=== PATIENT | female | born 1995 | race Asian ===

== ENCOUNTER 2021-11-23 03:26 | Outpatient (CLI) ==
[~2021-11-23] VITALS: Ht 165.1 cm; Wt 68.4 kg
[2021-11-23] MEDS ORDERED: HOME MED LIST COMPLETE! XX SCH (03:45)
[2021-11-23 03:50] VITALS: BP 129/65
== END 2021-11-23 05:52 | disposition home or self-care (01) ==
LOC: M LDO 03:26
PROVIDERS: ATTEND Obstetrics & Gynecology
DX: O60.03 Preterm labor without delivery, third trimester (principal); Z86.16 Personal history of COVID-19; Z3A.38 38 weeks gestation of pregnancy
CPT/HCPCS: 59025; G0463

== ENCOUNTER 2021-12-01 08:23 | Inpatient (IN) | payer OTHER ==
[~2021-12-01] VITALS: Ht 165.1 cm; Wt 68.5 kg
[2021-12-01] VITALS (32 sets, daily range): BP systolic 82–189; BP diastolic 45–93
[2021-12-01] MEDS ORDERED: HOME MED LIST COMPLETE! XX SCH (08:50)
[2021-12-01] MEDS ORDERED: OXYTOCIN DRIP 30 UNITS in IV 1 EA IV PRN ×4 (09:50)
[2021-12-01] MEDS ORDERED: OXYTOCIN DRIP 30 UNITS in IV 1 EA IV SCH ×5 (09:50→21:15)
[2021-12-01] MEDS ORDERED: LACTATED RINGER'S 1000 ML IV STA (09:50)
[2021-12-01] MEDS ORDERED: CARBOPROST TROMETHAMINE 250 MCG/ML AMP IM PRN (09:50)
[2021-12-01] MEDS ORDERED: PENICILLIN G POTASSIUM IV 5 MU in D5W MINI-BAG PLUS 100 ML IV STA (09:50)
[2021-12-01] MEDS ORDERED: METHYLERGONOVINE MALEATE 0.2 MG/ML VIAL (J2210) IM PRN ×2 (09:50→21:15)
[2021-12-01] MEDS ORDERED: TRANEXAMIC ACID INJection 1,000 MG in NS 100 ML IV PRN (09:50)
[2021-12-01] MEDS ORDERED: LIDOCAINE 1% MDV 20ML VIAL INFIL PRN (09:50)
[2021-12-01 10:23] LABS: HEMATOCRIT 35.6 % (36.0-47.0); HEMOGLOBIN 11.5 g/dl (12.0-15.5); MEAN CORPUSCULAR HEMOGLOBIN 28.3 pg (27.0-33.0); MEAN CORPUSCULAR HGB CONC 32.3 g/dl (32.0-36.5); MEAN CORPUSCULAR VOLUME 87.5 fl (80.0-96.0); PLATELET COUNT, AUTOMATED 258 10^3/uL (150-450); RED BLOOD COUNT 4.07 10^6/uL (4.00-5.40); WHITE BLOOD COUNT 6.1 10^3/uL (4.0-10.0)
[2021-12-01] MEDS: PENICILLIN G POTASSIUM IV 2.5 MU in IV 1 EA IV SCH ×2 (13:44→18:01)
[2021-12-01] MEDS ORDERED: FENTANYL 2MCG/ML ROPIVACAINE 0.2% IN 0.9% NACL 100ML IVBAG As Ordered ONE (14:23)
[2021-12-01] MEDS ORDERED: NALOXONE INJ 0.4MG/1ML VIAL (J2310 PER 1MG) IV PRN (14:25)
[2021-12-01] MEDS ORDERED: ePHEDrine SULFATE 25 MG/5 ML(5MG/ML) SYRINGE IVP PRN (14:25)
[2021-12-01] MEDS ORDERED: FENTANYL/ROPIVACAINE/NACL BAG 100 ML EPIDURAL SCH (14:25)
[2021-12-01] MEDS ORDERED: ONDANSETRON 4MG 2ML VIAL IV PRN (14:25)
[2021-12-01] MEDS ORDERED: diphenhydrAMINE 50MG/ML VIAL (J1200) IV PRN (14:25)
[2021-12-01] MEDS ORDERED: LR 500 ML IV PRN (14:25)
[2021-12-01] MEDS ORDERED: EPIDURAL/PCA KEYS XX PRN (14:25)
[2021-12-01] MEDS: LR 1,000 ML IV SCH ×2 (14:26→18:34)
[2021-12-01] MEDS ORDERED: OXYTOCIN INJ 10 UNITS/ML VIAL (J2590) IV ONE ×2 (18:15→21:15)
[2021-12-01 20:35] LABS: CORD GAS ABE A -3.2; CORD GAS ABE V -4.8; CORD GAS HCO3 A 21.9 MEQ/L; CORD GAS HCO3 V 20.3 MEQ/L; CORD GAS O2 SAT A 70.9 %; CORD GAS O2 SAT V 70.3 %; CORD GAS PCO2 A 39.8 mmHg; CORD GAS PH A 7.359 UNITS; CORD GAS PH V 7.346 UNITS; CORD GAS PO2 A 30.2 mmHg; CORD GAS PO2 V 30.5 mmHg; CORD GAS SBC A 21.2 MEQ/L; CORD GAS SBC V 19.9 MEQ/L; CORD GAS TCO2 A 23.2 MEQ/L; CORD GAS TCO2 V 21.5 MEQ/L
[2021-12-01] MEDS ORDERED: RHOGAM 300 MCG (1500 IU) INJ (J2790) IM SCH (21:15)
[2021-12-01] MEDS ORDERED: ACETAMINOPHEN TAB 650MG DOSE (2X325MG) PO PRN (21:15)
[2021-12-01] MEDS ORDERED: DIBUCAINE 1% OINTMENT 30GM TOP PRN (21:15)
[2021-12-01] MEDS ORDERED: ACETAMINOPHEN 500 MG TAB PO PRN (21:15)
[2021-12-01] MEDS ORDERED: TRANEXAMIC ACID INJection 1,000 MG in NS 100 ML IV ONE (21:15)
[2021-12-01] MEDS ORDERED: MOM 30ML SUSPENSION UDC PO PRN (21:15)
[2021-12-01] MEDS ORDERED: METHYLERGONOVINE MALEATE 0.2 MG TAB PO PRN (21:15)
[2021-12-01] MEDS ORDERED: ANUSOL HC CREAM 30GM TOP PRN (21:15)
[2021-12-01] MEDS ORDERED: LR 1,000 ML IV SCH (21:15)
[2021-12-01] MEDS: IBUPROFEN 600MG TAB PO PRN (21:45)
[2021-12-02 06:00] VITALS: BP 110/56
[2021-12-02 06:58] LABS: HEMATOCRIT 30.2 % (36.0-47.0); HEMOGLOBIN 9.7 g/dl (12.0-15.5); MEAN CORPUSCULAR HEMOGLOBIN 28.2 pg (27.0-33.0); MEAN CORPUSCULAR HGB CONC 32.1 g/dl (32.0-36.5); MEAN CORPUSCULAR VOLUME 87.8 fl (80.0-96.0); PLATELET COUNT, AUTOMATED 188 10^3/uL (150-450); RED BLOOD COUNT 3.44 10^6/uL (4.00-5.40); WHITE BLOOD COUNT 9.3 10^3/uL (4.0-10.0)
[2021-12-02] MEDS: PRENATAL VITAMINS CHEWABLE TABLET PO SCH (08:37)
[2021-12-02] MEDS: IBUPROFEN 600MG TAB PO PRN ×2 (08:38→18:05)
[2021-12-02] MEDS: DOCUSATE SODIUM 100MG CAPSULE PO PRN ×2 (08:38→18:04)
[2021-12-02 18:00] VITALS: BP 112/55
[2021-12-03] MEDS ORDERED: COLA100C5 PO (05:15)
[2021-12-03] MEDS ORDERED: IBUP-1022 PO (05:15)
[2021-12-03] MEDS ORDERED: ACET1TAB55 PO (05:15)
[2021-12-03] MEDS ORDERED: PRENCHW PO (05:15)
[2021-12-03 06:00] VITALS: BP 120/59
[2021-12-03] MEDS: PRENATAL VITAMINS CHEWABLE TABLET PO SCH (08:11)
[2021-12-03] MEDS: IBUPROFEN 600MG TAB PO PRN (08:13)
[2021-12-03] MEDS ORDERED: MEASLES,MUMPS,RUBELLA VACCINE INJ (MMR-II) (90707) SC.IMMUN ONE (09:00)
== END 2021-12-03 12:54 | disposition home or self-care (01) | DRG 807 ==
LOC: M LDO 08:23 → M LDI 09:06 → M OBS 22:46
PROVIDERS: ADMIT Registered Nurse; ATTEND Obstetrics & Gynecology
PROC: 10E0XZZ Delivery of Products of Conception, External Approach (ICD-10-PCS; principal; 2021-12-01)
PROC: 0HQ9XZZ Repair Perineum Skin, External Approach (ICD-10-PCS; 2021-12-01)
DX: O99.284 Endocrine, nutritional and metabolic diseases complicating childbirth (principal); Z37.0 Single live birth; Z3A.39 39 weeks gestation of pregnancy; O70.0 First degree perineal laceration during delivery